=== PATIENT | female | born 1940 | race Caucasian/White ===

== ENCOUNTER 2019-02-04 23:22 | Inpatient (IN) | payer MEDICARE ==
[~2019-02-04] VITALS: Ht 157.5 cm; Wt 73.0 kg
[~2019-02-04 23:22] MED LIST: ALBU18HF2; ALBU8.5H8; AMLO10TA7 PO; ATOR20TA PO; AZIL40TA PO; CLON0.2T PO; CLOP75TA15; ESCI5TAB PO; GLIP5TAB13; INSU100V7 SQ; LUBI24CA5 PO; METF500T7; METO50TA16 PO; OMEP10SU2 PO; PHEN-705 PO; SYRI1DIS; [UNRECOGNIZED DRUG - CODE] MC
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
[2019-02-05 00:37] LABS: APPEARANCE,URINE Clear (CLEAR); BILIRUBIN,URINE Negative (NEGATIVE); BLOOD, URINE Negative Ery/uL (NEGATIVE); COLOR,URINE Orange (YELLOW); KETONES,URINE Negative (NEGATIVE); LEUKOCYTE ESTERASE ,URINE Negative (NEGATIVE); NITRITE, URINE Positive (NEGATIVE); PROTEIN,URINE 30 mg/dl (NEGATIVE); UGLUCOSE >=1000 mg/dL (NEGATIVE); UROBILINOGEN,URINE 0.2 EU/dL (0.2)
[2019-02-05 00:43] LABS: BASOPHILS # (AUTO) 0.1 /CMM (0.0-0.2); BASOPHILS % (AUTO) 0.9 % (0.0-2.0); HEMATOCRIT 39 % (33-45); HEMOGLOBIN 12.8 g/dL (11.5-14.8); LYMPHOCYTES # (AUTO) 2.5 /CMM (0.8-4.8); LYMPHOCYTES % (AUTO) 23.6 % (20.0-44.0); MEAN CORPUSCULAR HGB CONC 33 g/dl (31.0-36.0); MEAN CORPUSCULAR VOLUME 92 fL (82-100); MONOCYTES # (AUTO) 0.6 /CMM (0.1-1.30); MONOCYTES % (AUTO) 5.9 % (2.0-12.0); NEUTROPHILS # (AUTO) 6.8 /CMM (1.8-8.9); NEUTROPHILS % (AUTO) 64.6 % (43.0-81.0); PLATELET COUNT (AUTO) 223 /CMM (150-450); RED BLOOD CELL COUNT(AUTO) 4.24 MIL/uL (4.0-5.2); WHITE BLOOD COUNT (AUTO) 10.5 K/uL (4.3-11.0)
[2019-02-05 00:51] LABS: ACETAMINOPHEN 3 ug/ml (10-30); ALANINE AMINOTRANSFERASE 22 U/L (12-78); ALBUMIN 3.6 g/dL (3.4-5.0); ALKALINE PHOSPHATASE 105 U/L (46-116); ASPARTATE AMINOTRANSFERASE 16 U/L (15-37); BILIRUBIN,DIRECT 0.1 mg/dL (0.0-0.2); BILIRUBIN,TOTAL 0.5 mg/dL (0.2-1.0); CALCIUM, SERUM 9.1 mg/dL (8.5-10.1); CARBON DIOXIDE 28 mmol/L (21-32); CHLORIDE 99 mmol/L (98-107); POTASSIUM 4.3 mmol/L (3.5-5.1); SODIUM SERUM 135 mmol/L (136-145); TOTAL PROTEIN, SERUM 6.6 g/dL (6.4-8.2); UREA NITROGEN, BLOOD 31 mg/dL (7-18)
[2019-02-05 00:52] LABS: ALCOHOL, BLOOD < 3 mg/dL (0-0); SALICYLATE 0.6 mg/dL (2.8-20.0)
[2019-02-05 00:53] LABS: GLUCOSE 378 mg/dL (74-106)
--- NOTE | 2019-02-05 01:00 | NUR ---
PT RESTING IN BED, NAD NOTED.
[2019-02-05] MEDS ORDERED: INSULIN REGULAR, HUMAN 100 UNIT/ML 10 ML VIAL ONE (01:11)
[2019-02-05 01:20] LABS: BACTERIA,URINE Few /HPF (None Seen); RBC,URINE 0-2 /HPF (0-2); SQUAMOUS EPITHELIAL CELL,UR Few /HPF (None Seen)
[2019-02-05] MEDS ORDERED: INSULIN REGULAR, HUMAN 100 UNIT/ML 10 ML VIAL IV ONE (01:30)
[2019-02-05 01:45] LABS: THYROID STIMULATING HORMONE 3.198 uIU/mL (0.358-3.74)
[2019-02-05 02:31] LABS: EOSINOPHILS % (MANUAL) 5 % (0-4); LYMPHOCYTES % (MANUAL) 14 % (16-48); MONOCYTES % (MANUAL) 4 % (0-11.0); NEUTROPHILS % (MANUAL) 77 (42-76)
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
[2019-02-05 02:56] VITALS: BP 117/60
[2019-02-05] MEDS ORDERED: ZOLPIDEM TARTRATE 5 MG TABLET PO PRN (03:00)
[2019-02-05] MEDS ORDERED: LORAZEPAM 0.5 MG TABLET PO PRN (03:00)
[2019-02-05] MEDS ORDERED: MAGNESIUM HYDROXIDE 30 ML UDC PO PRN (03:00)
[2019-02-05 04:30] VITALS: BP 164/86
--- NOTE | 2019-02-05 06:56 | NUR ---
PAGED DR. MAE TO RECONCILE THE MEDS. AWAITING FOR CALLBACK. WILL ENDORSE TO NEXT SHIFT NURSE FOR FOLLOW UP.
[2019-02-05 08:00] VITALS: BP 125/65
[2019-02-05] MEDS ORDERED: HYDR25TA4 PO (08:56)
[2019-02-05] MEDS ORDERED: DIVA-78 PO (08:56)
[2019-02-05] MEDS ORDERED: FENO145T35 PO (08:56)
[2019-02-05] MEDS ORDERED: LAMO25TA10 PO (08:56)
[2019-02-05] MEDS ORDERED: LABE100T5 PO (08:56)
[2019-02-05] MEDS ORDERED: INSU100V7 SQ (08:56)
[2019-02-05] MEDS ORDERED: QUET100T PO (08:56)
[2019-02-05] MEDS ORDERED: CRAN250T2 PO (08:56)
[2019-02-05] MEDS ORDERED: CLOP75TA15 PO (08:56)
[2019-02-05] MEDS ORDERED: LOSA100T31 PO (08:56)
[2019-02-05] MEDS ORDERED: DEXTROSE 50%-WATER 50 ML DISP.SYRIN IV PRN (09:30)
[2019-02-05] MEDS: ATORVASTATIN 40 MG TABLET PO SCH (09:44)
[2019-02-05] MEDS: LOSARTAN POTASSIUM 50 MG TABLET PO SCH (10:49)
[2019-02-05] MEDS: INSULIN REGULAR, HUMAN 100 UNIT/ML 3 ML VIAL SQ PRN ×3 (12:38→21:38)
[2019-02-05] MEDS: BLOOD SUGAR DIAGNOSTIC 1 EACH STRIP IN SCH ×3 (12:43→21:15)
[2019-02-05 16:00] VITALS: BP 161/67
[2019-02-05] MEDS: ACETAMINOPHEN 325 MG TABLET PO PRN (17:35)
[2019-02-05] MEDS: LABETALOL HCL (100MG) 100 MG TABLET PO SCH (18:44)
[2019-02-05] MEDS: AMLODIPINE BESYLATE 10 MG TABLET PO SCH (18:54)
[2019-02-05] MEDS: CLONIDINE HCL 0.1 MG TABLET PO PRN (20:14)
[2019-02-05 20:22] VITALS: BP 179/90
[2019-02-05] MEDS: DIVALPROEX SODIUM 250 MG TABLET.DR PO SCH (21:10)
[2019-02-05] MEDS: QUETIAPINE FUMARATE 100 MG TABLET PO SCH (21:10)
[2019-02-05 21:30] VITALS: BP 140/67
[2019-02-05] MEDS: INSULIN GLARGINE, 100 UNIT/ML CARTRIDGE SQ SCH (21:36)
[2019-02-06 08:00] VITALS: BP 168/70
[2019-02-06] MEDS: INSULIN REGULAR, HUMAN 100 UNIT/ML 3 ML VIAL SQ PRN ×4 (08:20→21:20)
[2019-02-06] MEDS: BLOOD SUGAR DIAGNOSTIC 1 EACH STRIP IN SCH ×4 (08:21→21:12)
[2019-02-06] MEDS: FENOFIBRATE NANOCRYS (145 MG) 145 MG TABLET PO SCH (08:50)
[2019-02-06] MEDS: ATORVASTATIN 40 MG TABLET PO SCH (08:50)
[2019-02-06] MEDS: ESCITALOPRAM OXALATE (10 MG) 10 MG TABLET PO SCH (08:50)
[2019-02-06] MEDS: HYDROCHLOROTHIAZIDE 25 MG TABLET PO SCH (08:51)
[2019-02-06] MEDS: CLOPIDOGREL BISULFATE 75 MG TABLET PO SCH (08:51)
[2019-02-06] MEDS: AMLODIPINE BESYLATE 10 MG TABLET PO SCH (08:51)
[2019-02-06] MEDS: LOSARTAN POTASSIUM 50 MG TABLET PO SCH (08:52)
[2019-02-06] MEDS: LABETALOL HCL (100MG) 100 MG TABLET PO SCH ×2 (08:53→21:10)
[2019-02-06] MEDS: DIVALPROEX SODIUM 250 MG TABLET.DR PO SCH ×2 (08:58→21:10)
[2019-02-06] MEDS ORDERED: AMLODIPINE BESYLATE 10 MG TABLET PO SCH (09:00)
[2019-02-06] MEDS ORDERED: METOPROLOL TARTRATE 50 MG TABLET PO SCH (09:00)
[2019-02-06] MEDS ORDERED: CRANBERRY FRUIT 250 MG PO SCH (09:00)
[2019-02-06] MEDS ORDERED: LABETALOL HCL (100MG) 100 MG TABLET PO SCH (11:00)
[2019-02-06 11:47] LABS: CHOLESTEROL 188 mg/dL (<200); HDL CHOLESTEROL 49 mg/dL (40-60); LDL 109 mg/dL (0-99); TRIGLYCERIDES 246 mg/dL (30-150)
[2019-02-06 11:48] LABS: ALANINE AMINOTRANSFERASE 21 U/L (12-78); ALBUMIN 3.4 g/dL (3.4-5.0); ALKALINE PHOSPHATASE 67 U/L (46-116); ASPARTATE AMINOTRANSFERASE 9 U/L (15-37); BILIRUBIN,TOTAL 0.4 mg/dL (0.2-1.0); CARBON DIOXIDE 27 mmol/L (21-32); CHLORIDE 102 mmol/L (98-107); CREATININE 0.8 mg/dL (0.6-1.3); GLUCOSE 279 mg/dL (74-106); SODIUM SERUM 139 mmol/L (136-145); TOTAL PROTEIN, SERUM 6.3 g/dL (6.4-8.2); UREA NITROGEN, BLOOD 21 mg/dL (7-18)
--- NOTE | 2019-02-06 11:51 | NUR ---
SW contacted pts Mustapha [phone] and discussed treatment planning, discharge planning, and collateral information. Per he stated that pt needs SNF placement as he is unable to manage pts psychotic symptoms at home. SW informed him that she would be referring pt to local SNF's, agreed.
[2019-02-06 12:02] LABS: BASOPHILS % (AUTO) 0.4 % (0.0-2.0); EOSINOPHILS % (AUTO) 4.2 % (0.0-6.0); HEMATOCRIT 37 % (33-45); HEMOGLOBIN 12.2 g/dL (11.5-14.8); LYMPHOCYTES # (AUTO) 1.5 /CMM (0.8-4.8); MEAN CORPUSCULAR HGB CONC 33 g/dl (31.0-36.0); MEAN CORPUSCULAR VOLUME 90 fL (82-100); MONOCYTES # (AUTO) 0.4 /CMM (0.1-1.30); MONOCYTES % (AUTO) 5.3 % (2.0-12.0); NEUTROPHILS # (AUTO) 5.1 /CMM (1.8-8.9); NEUTROPHILS % (AUTO) 70.1 % (43.0-81.0); PLATELET COUNT (AUTO) 225 /CMM (150-450); RED BLOOD CELL COUNT(AUTO) 4.07 MIL/uL (4.0-5.2); WHITE BLOOD COUNT (AUTO) 7.3 K/uL (4.3-11.0)
[2019-02-06] MEDS: ACETAMINOPHEN 325 MG TABLET PO PRN ×2 (13:28→19:45)
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
[2019-02-06 16:00] VITALS: BP 152/67
[2019-02-06] MEDS: CLONIDINE HCL 0.1 MG TABLET PO PRN (19:44)
[2019-02-06 20:17] VITALS: BP 210/92
[2019-02-06 21:06] VITALS: BP 158/71
[2019-02-06] MEDS: QUETIAPINE FUMARATE 100 MG TABLET PO SCH (21:11)
[2019-02-06] MEDS: INSULIN GLARGINE, 100 UNIT/ML CARTRIDGE SQ SCH (21:19)
[2019-02-07] MEDS: INSULIN REGULAR, HUMAN 100 UNIT/ML 3 ML VIAL SQ PRN ×4 (07:31→21:31)
[2019-02-07] MEDS: BLOOD SUGAR DIAGNOSTIC 1 EACH STRIP IN SCH ×4 (07:31→21:30)
[2019-02-07 08:00] VITALS: BP 160/82
[2019-02-07] MEDS: ATORVASTATIN 40 MG TABLET PO SCH (08:09)
[2019-02-07] MEDS: FENOFIBRATE NANOCRYS (145 MG) 145 MG TABLET PO SCH (08:09)
[2019-02-07] MEDS: CLOPIDOGREL BISULFATE 75 MG TABLET PO SCH (08:09)
[2019-02-07] MEDS: HYDROCHLOROTHIAZIDE 25 MG TABLET PO SCH (08:09)
[2019-02-07] MEDS: AMLODIPINE BESYLATE 10 MG TABLET PO SCH (08:09)
[2019-02-07] MEDS: ESCITALOPRAM OXALATE (10 MG) 10 MG TABLET PO SCH (08:09)
[2019-02-07] MEDS: LOSARTAN POTASSIUM 50 MG TABLET PO SCH (08:09)
[2019-02-07] MEDS: DIVALPROEX SODIUM 250 MG TABLET.DR PO SCH ×2 (08:09→20:17)
[2019-02-07] MEDS: LABETALOL HCL (100MG) 100 MG TABLET PO SCH ×2 (08:10→20:18)
[2019-02-07] MEDS: MAG HYDROX/AL HYDROX/SIMETH 30 ML UDC PO PRN (09:42)
[2019-02-07] MEDS: ACETAMINOPHEN 325 MG TABLET PO PRN ×2 (11:21→18:38)
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
[2019-02-07 16:00] VITALS: BP 152/90
[2019-02-07 20:37] VITALS: BP 160/64
[2019-02-07] MEDS: INSULIN GLARGINE, 100 UNIT/ML CARTRIDGE SQ SCH (21:31)
[2019-02-07] MEDS: QUETIAPINE FUMARATE 100 MG TABLET PO SCH (21:32)
[2019-02-08 08:00] VITALS: BP 179/74
[2019-02-08] MEDS ORDERED: HYDROCODONE/APAP 5/325MG 1 EACH TABLET PO PRN (08:30)
[2019-02-08] MEDS: BLOOD SUGAR DIAGNOSTIC 1 EACH STRIP IN SCH ×4 (09:02→21:16)
[2019-02-08] MEDS: LOSARTAN POTASSIUM 50 MG TABLET PO SCH (09:22)
[2019-02-08] MEDS: METFORMIN 500 MG TABLET PO SCH ×2 (09:22→18:17)
[2019-02-08] MEDS: DIVALPROEX SODIUM 250 MG TABLET.DR PO SCH ×2 (09:23→20:41)
[2019-02-08] MEDS: FENOFIBRATE NANOCRYS (145 MG) 145 MG TABLET PO SCH (09:23)
[2019-02-08] MEDS: ESCITALOPRAM OXALATE (10 MG) 10 MG TABLET PO SCH (09:23)
[2019-02-08] MEDS: HYDROCHLOROTHIAZIDE 25 MG TABLET PO SCH (09:23)
[2019-02-08] MEDS: LABETALOL HCL (100MG) 100 MG TABLET PO SCH ×2 (09:24→20:41)
[2019-02-08] MEDS: AMLODIPINE BESYLATE 10 MG TABLET PO SCH (09:24)
[2019-02-08] MEDS: ATORVASTATIN 40 MG TABLET PO SCH (09:24)
[2019-02-08] MEDS: CLOPIDOGREL BISULFATE 75 MG TABLET PO SCH (09:28)
[2019-02-08] MEDS: INSULIN REGULAR, HUMAN 100 UNIT/ML 3 ML VIAL SQ PRN ×4 (09:36→21:27)
[2019-02-08 11:10] VITALS: BP 195/95
[2019-02-08] MEDS: CLONIDINE HCL 0.1 MG TABLET PO PRN (11:11)
--- NOTE | 2019-02-08 11:11 | NUR ---
given norco for headache and clonidine for elevated bp..
--- NOTE | 2019-02-08 11:24 | NUR ---
PC Hearing Notification: VERONIKA contacted pts Mustapha [phone] and left him a voicemail stating that the pt will have a PC Hearing today and that will entail whether or not the pt will be on a hold.
--- NOTE | 2019-02-08 13:51 | NUR ---
covered for 266 blood sugar,366 blood sugar was taken per pt. request after pt. ate.
[2019-02-08 16:00] VITALS: BP 130/50
--- NOTE | 2019-02-08 16:02 | NUR ---
Superintendent Maintenance [employer]ports Group Session-- Goal: Patient will attend group being held today from 11am -11:45 in the activities room and participate and/or actively listen to peers and be respectful. Intervention: SW invited patient to attend group session with peers regarding: the goal or positive outcome/s each pt. would like to see happen as a result of their stay in [facility]. SW respected patient�s self-determination and will continue to invite patient to future group sessions. Response: Patient declined to participate in today�s group bilingual social worker session. Plan: Patient will be invited to attend next bilingual social worker group held.
[2019-02-08 19:48] VITALS: BP 142/67
[2019-02-08] MEDS: ACETAMINOPHEN 325 MG TABLET PO PRN (20:40)
[2019-02-08] MEDS: QUETIAPINE FUMARATE 100 MG TABLET PO SCH (21:16)
[2019-02-08] MEDS: INSULIN GLARGINE, 100 UNIT/ML CARTRIDGE SQ SCH (21:26)
[2019-02-09] MEDS: BLOOD SUGAR DIAGNOSTIC 1 EACH STRIP IN SCH ×4 (07:15→21:32)
[2019-02-09 08:00] VITALS: BP 161/71
[2019-02-09] MEDS: ESCITALOPRAM OXALATE (10 MG) 10 MG TABLET PO SCH (08:08)
[2019-02-09] MEDS: LOSARTAN POTASSIUM 50 MG TABLET PO SCH (08:08)
[2019-02-09] MEDS: METFORMIN 500 MG TABLET PO SCH ×2 (08:08→16:24)
[2019-02-09] MEDS: FENOFIBRATE NANOCRYS (145 MG) 145 MG TABLET PO SCH (08:08)
[2019-02-09] MEDS: DIVALPROEX SODIUM 250 MG TABLET.DR PO SCH ×2 (08:08→20:10)
[2019-02-09] MEDS: HYDROCHLOROTHIAZIDE 25 MG TABLET PO SCH (08:08)
[2019-02-09] MEDS: ATORVASTATIN 40 MG TABLET PO SCH (08:08)
[2019-02-09] MEDS: AMLODIPINE BESYLATE 10 MG TABLET PO SCH (08:09)
[2019-02-09] MEDS: LABETALOL HCL (100MG) 100 MG TABLET PO SCH ×2 (08:09→20:11)
[2019-02-09] MEDS: CLOPIDOGREL BISULFATE 75 MG TABLET PO SCH (08:09)
[2019-02-09] MEDS: INSULIN REGULAR, HUMAN 100 UNIT/ML 3 ML VIAL SQ PRN ×4 (08:10→21:53)
[2019-02-09] MEDS: CLONIDINE HCL 0.1 MG TABLET PO PRN (09:13)
--- NOTE | 2019-02-09 09:17 | NUR ---
VERONIKA faxed SNF referral to Manuela, charter coordinator at [facility] Address: [address] [place] [address] for review.
--- NOTE | 2019-02-09 12:20 | NUR ---
SW received a call from Payton, curriculum development coordinator at [facility] Address: [address] [place] [address] stating pt has been accepted to the facility.
--- NOTE | 2019-02-09 12:21 | NUR ---
VERONIKA contacted pts Mustapha [phone] and informed him pt is discharging tomorrow 02/10/19 to [facility], agreed with discharge plan.
[2019-02-09] MEDS: ACETAMINOPHEN 325 MG TABLET PO PRN (14:54)
[2019-02-09 16:37] VITALS: BP 148/75
--- NOTE | 2019-02-09 19:36 | NUR ---
SHE IS CLAIMING TO HAVE LOOSE BOWEL, INSTRUCTED TO LET RN CHECK HER STOOLS, OFFERED APPLE JUICE BUT SHE REFUSED.
[2019-02-09 20:00] VITALS: BP 148/65
[2019-02-09] MEDS: MAG HYDROX/AL HYDROX/SIMETH 30 ML UDC PO PRN (20:01)
[2019-02-09] MEDS: QUETIAPINE FUMARATE 100 MG TABLET PO SCH (21:10)
[2019-02-09] MEDS: INSULIN GLARGINE, 100 UNIT/ML CARTRIDGE SQ SCH (21:56)
[2019-02-10 08:00] VITALS: BP 157/68
[2019-02-10] MEDS: CLOPIDOGREL BISULFATE 75 MG TABLET PO SCH (08:20)
[2019-02-10] MEDS: ATORVASTATIN 40 MG TABLET PO SCH (08:20)
[2019-02-10] MEDS: BLOOD SUGAR DIAGNOSTIC 1 EACH STRIP IN SCH (08:20)
[2019-02-10] MEDS: METFORMIN 500 MG TABLET PO SCH (08:20)
[2019-02-10] MEDS: DIVALPROEX SODIUM 250 MG TABLET.DR PO SCH (08:21)
[2019-02-10] MEDS: LOSARTAN POTASSIUM 50 MG TABLET PO SCH (08:21)
[2019-02-10] MEDS: LABETALOL HCL (100MG) 100 MG TABLET PO SCH (08:21)
[2019-02-10] MEDS: HYDROCHLOROTHIAZIDE 25 MG TABLET PO SCH (08:22)
[2019-02-10] MEDS: ESCITALOPRAM OXALATE (10 MG) 10 MG TABLET PO SCH (08:22)
[2019-02-10] MEDS: FENOFIBRATE NANOCRYS (145 MG) 145 MG TABLET PO SCH (08:22)
[2019-02-10] MEDS: AMLODIPINE BESYLATE 10 MG TABLET PO SCH (08:22)
[2019-02-10] MEDS: INSULIN REGULAR, HUMAN 100 UNIT/ML 3 ML VIAL SQ PRN (08:24)
--- NOTE | 2019-02-10 09:03 | NUR ---
WOUND CARE CONSULT: PT PRESENTS WITH SKIN GROWTHS ON BILATERAL SHOULDERS, PRESENT ON ADMISSION. PT STATES WILL FOLLOW UP WITH PMD/POWER EQUIPMENT TECHNOLOGY INSTRUCTOR AFTER DISCHARGE TODAY.
--- NOTE | 2019-02-10 09:21 | NUR ---
DR. GONZALES GAVE AN ORDER TO D/C HOLD AND D/C TO [facility] AND TO FOLLOW UP WITH PSYCH AND MEDICAL DOCTORS. PT. WITHOUT DISTRESS, DENIES SUICIDAL AND HOMICIDAL. DR. HESTER MADE AWARE OF THE DISCHARGE AND RECONCILED MEDS. Addendum: 02/10/19 at 1105 by PAOLA PIPER RN PT. D/C TO MED-SURG INSTEAD TO [facility].
--- NOTE | 2019-02-10 10:36 | NUR ---
GPS RN NOTE INFORMED PRIMARY HOSPITALIST OF BRIGHT RED BLOOD PER RECTUM X1 JUST NOW. PER DR HESTER, HOLD D/C PENDING GI CONSULT AND RECEIVED ORDERS FOR STAT CBC. VERIFIED VIA READ BACK AND CARRIED OUT. INFORMED CHARGE NURSE PAOLA, PER PAOLA SINCE PT WAS FOR D/C TODAY AND CLEARED BY PSYCH PT WILL BE TRANSFERRED TO MEDICAL FLOOR, AWAITING ROOM ASSIGNMENT.
--- NOTE | 2019-02-10 10:56 | NUR ---
DISCHARGE NOTE: Pt will be discharged to the medical floor on this present day. Once pt is stable she will be discharged to [facility].
--- NOTE | 2019-02-10 10:56 | NUR ---
DR. GONZALES MADE AWARE THAT PT. IS WITH AN ORDER TO TRANSFER TO MED-SURG FOR BLOODY STOOLS AND HE ORDERED TO D/C HOLD AND D/C TO MED- SURG. MAINTENANCE PLANNING CLERK MADE AWARE AND DEANDRE WAS NOTIFIED. Addendum: 02/10/19 at 1533 by PAOLA PIPER RN PT. DENIES SUICIDAL AND HOMICIDAL.
[2019-02-10 11:00] VITALS: BP 154/76
--- NOTE | 2019-02-10 11:04 | NUR ---
VERONIKA contacted Payton, conference center coordinator at [facility] Address: [address] [place] [address] to inform her pt will not be discharged on this present day due to being discharged to the medical floor.
[2019-02-10 11:17] LABS: BASOPHILS # (AUTO) 0.1 /CMM (0.0-0.2); BASOPHILS % (AUTO) 1.3 % (0.0-2.0); HEMATOCRIT 40 % (33-45); HEMOGLOBIN 13.3 g/dL (11.5-14.8); LYMPHOCYTES # (AUTO) 1.8 /CMM (0.8-4.8); LYMPHOCYTES % (AUTO) 22.2 % (20.0-44.0); MEAN CORPUSCULAR HGB CONC 33 g/dl (31.0-36.0); MEAN CORPUSCULAR VOLUME 90 fL (82-100); MONOCYTES # (AUTO) 0.4 /CMM (0.1-1.30); MONOCYTES % (AUTO) 4.8 % (2.0-12.0); NEUTROPHILS # (AUTO) 5.4 /CMM (1.8-8.9); NEUTROPHILS % (AUTO) 67.7 % (43.0-81.0); PLATELET COUNT (AUTO) 262 /CMM (150-450); RED BLOOD CELL COUNT(AUTO) 4.45 MIL/uL (4.0-5.2); WHITE BLOOD COUNT (AUTO) 7.9 K/uL (4.3-11.0)
--- NOTE | 2019-02-10 13:05 | NUR ---
GPS RN NOTE PT DISCHARGED TO [facility]. REPORT GIVEN TO KIMBERLEE SANCHEZ
[2019-02-11] MEDS ORDERED: HYDR28.32 TP (08:42)
[2019-02-11] MEDS ORDERED: NITR100C6 PO (08:46)
== END 2019-02-10 13:00 | disposition short-term general hospital (02) | DRG 885 ==
LOC: ER 23:25 → GPS 02-05 02:24
PROVIDERS: ADMIT Psychiatry & Neurology Psychiatry; ATTEND Family Medicine
DX: F39 Unspecified mood [affective] disorder (principal); E11.65 Type 2 diabetes mellitus with hyperglycemia; K92.1 Melena; E78.5 Hyperlipidemia, unspecified; F31.9 Bipolar disorder, unspecified; F03.90 Unspecified dementia, unspecified severity, without behavioral disturbance, psychotic disturbance, mood disturbance, and anxiety; Z86.73 Personal history of transient ischemic attack (TIA), and cerebral infarction without residual deficits; I10 Essential (primary) hypertension
CPT/HCPCS: 36415; 80048-TC; 80053-TC; 80061-TC; 80076-TC; 80305; 81000-TC; 82010-TC; 82962-TC; 84443-TC; 85025-TC; 87081-TC; G0480; J1815

== ENCOUNTER 2019-02-10 12:09 | Inpatient (IN) | payer MEDICARE ==
[~2019-02-10] VITALS: Ht 160 cm; Wt 69.4 kg
[~2019-02-10 12:09] MED LIST changes: +CLOP75TA15 PO; +CRAN250T2 PO; +DIVA-78 PO; +FENO145T35 PO; +HYDR25TA4 PO; +LABE100T5 PO; +LAMO25TA10 PO; +LOSA100T31 PO; +QUET100T PO
[2019-02-10] MEDS ORDERED: CLONIDINE HCL 0.2 MG TABLET PO PRN (12:30)
[2019-02-10] MEDS ORDERED: DEXTROSE 50%-WATER 50 ML DISP.SYRIN IV PRN (12:30)
[2019-02-10] MEDS ORDERED: IV D5/0.45 NACL 1,000 ML IV PRN (12:31)
[2019-02-10] MEDS ORDERED: ACETAMINOPHEN 325 MG TABLET PO PRN (13:00)
[2019-02-10] MEDS ORDERED: ONDANSETRON HCL/PF 4 MG/2 ML VIAL IVP PRN (13:00)
[2019-02-10] MEDS ORDERED: ZOLPIDEM TARTRATE 5 MG TABLET PO PRN (13:00)
[2019-02-10] MEDS ORDERED: Z GUARD REMEDY 2 OZ OINT TP PRN (13:00)
[2019-02-10] MEDS ORDERED: CLONIDINE HCL 0.1 MG TABLET PO PRN (13:00)
[2019-02-10] MEDS ORDERED: HYDROCODONE/APAP 5/325MG 1 EACH TABLET PO PRN (13:00)
[2019-02-10] MEDS ORDERED: MORPHINE SULFATE INJ 2 MG/ML DISP.SYRIN IV PRN (13:00)
[2019-02-10] MEDS ORDERED: MAGNESIUM HYDROXIDE 30 ML UDC PO PRN (13:00)
[2019-02-10] MEDS ORDERED: MAG HYDROX/AL HYDROX/SIMETH 30 ML UDC PO PRN (13:00)
[2019-02-10] MEDS: LOSARTAN POTASSIUM 50 MG TABLET PO SCH (13:33)
--- NOTE | 2019-02-10 14:15 | NUR ---
MS ASSISTANT CITY ATTORNEY NOTES RECEIVED PT FROM GPS UNIT. JAMES GPS/RN/ELLIOTT AT 1230. PT IS A/O X3 WITH EPISODES OF FORGETFULNESS. PT AMBULATORY WITH MILD WEAKNESS NOTED WHILE WALKING. TOLERATING RA WITH NO ACUTE RESPIRATORY DISTRESS. PT REFUSES TO HAVE PIV LINE STARTED. MULTIPLE NURSED ENCOURAGED AND EXPLAINED TO THE PT RISKS AND BENEFITS, STILL PT REFUSED TO HAVE IT; ADMITTING/JUNIOR BOOKKEEPER/DT MADE AWARE. PT DENIES ANY PAIN OR DISCOMFORT AT THE TIME OF ADMISSION. GATHERED ADMISSION INFORMATION FROM THE PT. BELONGINGS/INVENTORY LIST PLACED IN THE CHART. LEFT SHOULDER LESION NOTED, PER GPS NURSE IT WAS SEEN BY TX NURSE/LOLA AND TO LEAVE IT OPEN TO AIR. SKIN INTACT. PT ORIENTED TO STAFF AND THE UNIT. PT KEPT COMFORTABLE. PT'S BED IN LOWEST, LOCKED POSITION WITH SR X3. WILL CONTINUE PLAN OF CARE.
[2019-02-10 14:19] LABS: APPEARANCE,URINE SL CLOUDY (CLEAR); BILIRUBIN,URINE NEGATIVE (NEGATIVE); BLOOD, URINE NEGATIVE Ery/uL (NEGATIVE); COLOR,URINE YELLOW (YELLOW); KETONES,URINE NEGATIVE (NEGATIVE); LEUKOCYTE ESTERASE ,URINE 1+ (NEGATIVE); NITRITE, URINE NEGATIVE (NEGATIVE); PROTEIN,URINE NEGATIVE (NEGATIVE); UGLUCOSE 1+ mg/dL (NEGATIVE); UROBILINOGEN,URINE 0.2 EU/dL (0.2)
[2019-02-10 15:05] LABS: BACTERIA,URINE Few /HPF (None Seen); RBC,URINE 0-2 /HPF (0-2); SQUAMOUS EPITHELIAL CELL,UR Few /HPF (None Seen)
--- NOTE | 2019-02-10 15:50 | NUR ---
MS RN NOTES BANK WORKER/DT MADE AWARE REGARDING PT'S REFUSAL OF IV LINE UP TO THIS MOMENT. BANK WORKER ADVISED TO TRY AGAIN LATER OR MIDLINE IF HARD STICK. ALSO, PT REQUESTED TO HAVE SHOWER. BANK WORKER/DT OKAY PT TO SHOWER. SATISH/DEANDRE MADE AWARE.
[2019-02-10 16:00] VITALS: BP 156/73
[2019-02-10] MEDS: HYDROCORTISONE 1% CREAM 28.35 GM TUBE TP SCH (16:44)
[2019-02-10] MEDS: BLOOD SUGAR DIAGNOSTIC 1 EACH STRIP IN SCH ×2 (16:54→21:52)
[2019-02-10] MEDS: INSULIN REGULAR, HUMAN 100 UNIT/ML 3 ML VIAL SQ PRN ×2 (16:57→21:49)
--- NOTE | 2019-02-10 18:01 | NUR ---
MS RN NOTES PT JUST HAD SHOWER ASSISTED BY TUBER OPERATOR/DAVID. PT OFFERED AND EXPLAINED RISKS AND BENEFITS OF HAVING PIV LINE STARTED. WITNESSED BY ANOTHER RN/JE AND KINDERGARTEN PREP TEACHER/CUATE. PT STILL INSIST TO REFUSE. WILL ENDORSE TO INCOMING NIGHT NURSE WELL.
--- NOTE | 2019-02-10 18:33 | NUR ---
MS RN CLOSING NOTES PT IS A/O X2-3 WITH EPISODES OF FORGETFULNESS. PT AMBULATORY WITH ASSIST. TOLERATING RA WITH NO ACUTE RESPIRATORY DISTRESS. PT STILL REFUSES TO HAVE PIV LINE STARTED; ADMITTING/RAILROAD CAR CLEANING SUPERVISOR/DT MADE AWARE. PT DENIES ANY PAIN OR DISCOMFORT AT THIS TIME. PT KEPT COMFORTABLE. ALL NEEDS AND CARE ATTENDED. PT'S BED IN LOWEST, LOCKED POSITION WITH SR X3. CALL LIGHT AND FLUID KEPT WITHIN REACH. WILL ENDORSE TO INCOMING NIGHT NURSE FOR BARBARA.
--- NOTE | 2019-02-10 19:10 | NUR ---
RN MS OPENING NOTES RECEIVED PATIENT IN BED AWAKE ALERT AND ORIENTED X2-3, RESPIRATIONS EVEN AND UNLABORED WITH EQUAL RISE AND FALL OF CHEST, DENIES ANY PAIN OR DISCOMFORT AT THIS TIME, ASKED PATIENT IF ABLE TO INSERT IV NOTIFIED OF RISK AND BENEFITS PATIENT STRONGLY REFUSED. HOSPITALIST AWARE. ORIENTED TO STAFF AND CALL LIGHT AND KEPT WITHIN REACH,SAFETY PRECAUTIONS IN PLACE, LOW BED AND LOCKED, BED ALARM IN PLACE, MADE PATIENT AWARE OF STOOL SAMPLE NEEDED, VERBALIZES SHE UNDERSTANDS. ALL NEEDS ATTENDED AT THIS TIME, WILL CONTINUE TO MONITOR AND ATTEND TO NEEDS.
[2019-02-10 20:00] VITALS: BP 164/70
--- NOTE | 2019-02-10 20:51 | NUR ---
Patient was transferred from [facility] to [facility] due to bloody stool. Prior to admission, patient resides at home with her spouse [place] [address] [place] [address] . She was ambulatory and independent with adl's prior to admit. Current dc plan is SNF placement at [facility] Address: [address] [place] [address] . Patient was already accepted and bed is available when dc. Addendum: 02/10/19 at 2051 by LYDIA MOORE RN Amended: Links added.
[2019-02-10] MEDS ORDERED: INSULIN GLARGINE, 100 UNIT/ML CARTRIDGE SQ SCH (22:00)
--- NOTE | 2019-02-10 22:00 | NUR ---
RN MS NOTES ACCU-CHECK 164 INSULIN GIVEN ORDERED JUICE REQUESTED AND GIVEN
[2019-02-11] VITALS: BP 134/59
--- NOTE | 2019-02-11 06:43 | NUR ---
RN MS NOTES PATIENT REFUSED LAB DRAW AT THIS TIME , EXPLAINED BENEFIT OF MD ORDER PATIENT STILL REFUSED , LAB WILL ATTEMPT AT A LATER TIME PATIENT STATES " NO THEY ALWAYS TAKE BLOOD"
[2019-02-11] MEDS: BLOOD SUGAR DIAGNOSTIC 1 EACH STRIP IN SCH ×2 (06:47→12:01)
[2019-02-11] MEDS: INSULIN REGULAR, HUMAN 100 UNIT/ML 3 ML VIAL SQ PRN ×2 (06:47→11:35)
--- NOTE | 2019-02-11 07:05 | NUR ---
RN MS CLOSING NOTES PATIENT IN BED AWAKE ALERT AND ORIENTED X2-3, RESPIRATIONS EVEN AND UNLABORED WITH EQUAL RISE AND FALL OF CHEST, DENIES ANY PAIN OR DISCOMFORT AT THIS TIME, UNABLE TO INSERT IV NOTIFIED OF RISK AND BENEFITS PATIENT STRONGLY REFUSED. HOSPITALIST AWARE. CALL LIGHT AND KEPT WITHIN REACH,SAFETY PRECAUTIONS IN PLACE, LOW BED AND LOCKED, BED ALARM IN PLACE, MADE PATIENT AWARE OF STOOL SAMPLE NEEDED, NO BM THIS SHIT, ALL NEEDS ATTENDED AT THIS TIME, WILL CONTINUE TO MONITOR AND ATTEND TO NEEDS AND ENDORSE TO NEXT SHIFT LEFT PATIENT SAFE.
--- NOTE | 2019-02-11 07:30 | NUR ---
RN MS OPENING NOTES Patient received on room air, no sob noted, patient remains a/o x2-3. Patient would start crying randomly when talking to her. Patient remains on clear liquid diet, refuses IV placement, and refused blood draw this AM. Asked patient to give blood to the tech because it's important, patient agreed and said she will consent to blood draw later on. Patient aware that we need stool sample from her. Bed at the lowest setting, call light within reach, side rails up x2.
[2019-02-11 08:00] VITALS: BP 144/71
[2019-02-11 08:36] VITALS: BP 144/71
[2019-02-11] MEDS: LOSARTAN POTASSIUM 50 MG TABLET PO SCH (08:36)
[2019-02-11] MEDS: HYDROCORTISONE 1% CREAM 28.35 GM TUBE TP SCH (08:36)
[2019-02-11] MEDS ORDERED: HYDR28.32 TP (08:42)
--- NOTE | 2019-02-11 08:44 | NUR ---
RN NOTES Protonix not given due to patient not having IV access, pt refuses IV access at this time.
[2019-02-11] MEDS ORDERED: NITR100C6 PO (08:46)
[2019-02-11] MEDS ORDERED: HYDROCHLOROTHIAZIDE 25 MG TABLET PO SCH (09:00)
[2019-02-11] MEDS ORDERED: AMLODIPINE BESYLATE 10 MG TABLET PO SCH (09:00)
[2019-02-11] MEDS ORDERED: LABETALOL HCL (100MG) 100 MG TABLET PO SCH (09:00)
[2019-02-11] MEDS ORDERED: FENOFIBRATE NANOCRYS (145 MG) 145 MG TABLET PO SCH (09:00)
[2019-02-11] MEDS ORDERED: METOPROLOL TARTRATE 50 MG TABLET PO SCH (09:00)
[2019-02-11] MEDS ORDERED: PANTOPRAZOLE 40 MG VIAL IV SCH (09:00)
[2019-02-11 09:26] LABS: BASOPHILS % (AUTO) 0.2 % (0.0-2.0); EOSINOPHILS % (AUTO) 3.8 % (0.0-6.0); HEMATOCRIT 39 % (33-45); LYMPHOCYTES # (AUTO) 1.5 /CMM (0.8-4.8); LYMPHOCYTES % (AUTO) 20.9 % (20.0-44.0); MEAN CORPUSCULAR HGB CONC 34 g/dl (31.0-36.0); MEAN CORPUSCULAR VOLUME 90 fL (82-100); MONOCYTES # (AUTO) 0.4 /CMM (0.1-1.30); MONOCYTES % (AUTO) 5.6 % (2.0-12.0); NEUTROPHILS # (AUTO) 4.9 /CMM (1.8-8.9); NEUTROPHILS % (AUTO) 69.5 % (43.0-81.0); PLATELET COUNT (AUTO) 226 /CMM (150-450); RED BLOOD CELL COUNT(AUTO) 4.26 MIL/uL (4.0-5.2)
[2019-02-11 09:38] LABS: ALANINE AMINOTRANSFERASE 19 U/L (12-78); ALBUMIN 3.5 g/dL (3.4-5.0); ALKALINE PHOSPHATASE 54 U/L (46-116); ASPARTATE AMINOTRANSFERASE 32 U/L (15-37); BILIRUBIN,TOTAL 0.5 mg/dL (0.2-1.0); CALCIUM, SERUM 9.2 mg/dL (8.5-10.1); CARBON DIOXIDE 25 mmol/L (21-32); CHLORIDE 102 mmol/L (98-107); CREATININE 0.6 mg/dL (0.6-1.3); GLUCOSE 155 mg/dL (74-106); MAGNESIUM 1.7 mg/dL (1.8-2.4); PHOSPHORUS 3.3 mg/dL (2.5-4.9); POTASSIUM 4.6 mmol/L (3.5-5.1); SODIUM SERUM 137 mmol/L (136-145); TOTAL PROTEIN, SERUM 6.6 g/dL (6.4-8.2); UREA NITROGEN, BLOOD 14 mg/dL (7-18)
[2019-02-11] MEDS ORDERED: MAGNESIUM OXIDE 400 MG TABLET PO ONE (10:30)
--- NOTE | 2019-02-11 15:39 | NUR ---
RN MS NOTES Patient discharged at this time, picked up by ambulance. Patient has all belongings, signed and with her possession. Patient has no further questions or concerns with her discharge instructions. Patient has no IV line, patients vital signs stable, denies pain at this time. Photo taken and is now on the chart.
[2019-02-11] MEDS ORDERED: ATORVASTATIN 40 MG TABLET PO SCH (22:00)
[2019-02-12] MEDS ORDERED: PANTOPRAZOLE 40 MG/PACK PACK PO SCH (07:30)
== END 2019-02-11 15:30 | DRG 394 ==
LOC: MED 12:09
PROVIDERS: ADMIT Nurse Practitioner Acute Care; ATTEND Nurse Practitioner Acute Care
DX: K64.9 Unspecified hemorrhoids (principal); N39.0 Urinary tract infection, site not specified; I10 Essential (primary) hypertension; E78.5 Hyperlipidemia, unspecified; E11.9 Type 2 diabetes mellitus without complications; Z86.73 Personal history of transient ischemic attack (TIA), and cerebral infarction without residual deficits; F29 Unspecified psychosis not due to a substance or known physiological condition
CPT/HCPCS: 36415; 80053-TC; 81000-TC; 82962-TC; 83735-TC; 84100-TC; 85025-TC; 87081-TC; 87086-TC; C9113; G0378; J1815

== ENCOUNTER 2019-06-08 18:33 | Inpatient (IN) | payer MEDICARE, BC ==
[~2019-06-08] VITALS: Ht 160 cm; Wt 68.0 kg
[~2019-06-08 18:33] MED LIST changes: -ALBU18HF2; -ALBU8.5H8; -AZIL40TA PO; -CLOP75TA15; -DIVA-78 PO; -ESCI5TAB PO; +FENO145T21 PO; -FENO145T35 PO; -GLIP5TAB13; +HYDR28.32 TP; -LAMO25TA10 PO; -LUBI24CA5 PO; -METF500T7; +NITR100C6 PO; -OMEP10SU2 PO; -PHEN-705 PO; -QUET100T PO; -SYRI1DIS; -[UNRECOGNIZED DRUG - CODE] MC
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
--- NOTE | 2019-06-08 19:08 | NUR ---
patient refusing blood draw, becomes agitated. Dr. Guevara at bedside.
[2019-06-08 19:16] LABS: BASOPHILS # (AUTO) 0.1 /CMM (0.0-0.2); BASOPHILS % (AUTO) 1.1 % (0.0-2.0); EOSINOPHILS % (AUTO) 3.4 % (0.0-6.0); HEMATOCRIT 46 % (33-45); HEMOGLOBIN 14.7 g/dL (11.5-14.8); LYMPHOCYTES % (AUTO) 24.8 % (20.0-44.0); MEAN CORPUSCULAR HGB CONC 32 g/dl (31.0-36.0); MEAN CORPUSCULAR VOLUME 87 fL (82-100); MONOCYTES # (AUTO) 0.7 /CMM (0.1-1.30); MONOCYTES % (AUTO) 5.9 % (2.0-12.0); NEUTROPHILS # (AUTO) 7.9 /CMM (1.8-8.9); NEUTROPHILS % (AUTO) 64.8 % (43.0-81.0); PLATELET COUNT (AUTO) 261 /CMM (150-450); RED BLOOD CELL COUNT(AUTO) 5.25 MIL/uL (4.0-5.2); WHITE BLOOD COUNT (AUTO) 12.2 K/uL (4.3-11.0)
--- NOTE | 2019-06-08 19:20 | NUR ---
BLOOD DRAWN AND URINE SAMPLE OBTAINED AND SENT TO LAB.
[2019-06-08 19:22] LABS: APPEARANCE,URINE Clear (CLEAR); BILIRUBIN,URINE Negative (NEGATIVE); BLOOD, URINE Negative Ery/uL (NEGATIVE); COLOR,URINE Yellow (YELLOW); KETONES,URINE Negative (NEGATIVE); LEUKOCYTE ESTERASE ,URINE Negative (NEGATIVE); NITRITE, URINE Negative (NEGATIVE); PH,URINE 5.5 (5.0-8.0); PROTEIN,URINE Negative (NEGATIVE); UGLUCOSE 500 MG/DL mg/dL (NEGATIVE); UROBILINOGEN,URINE 0.2 EU/dL (0.2)
[2019-06-08 19:30] LABS: ALANINE AMINOTRANSFERASE 21 U/L (12-78); ALBUMIN 3.8 g/dL (3.4-5.0); ALCOHOL, BLOOD < 3 mg/dL (0-0); ALKALINE PHOSPHATASE 115 U/L (46-116); ASPARTATE AMINOTRANSFERASE 12 U/L (15-37); BILIRUBIN,DIRECT 0.1 mg/dL (0.0-0.2); BILIRUBIN,TOTAL 0.6 mg/dL (0.2-1.0); CALCIUM, SERUM 9.4 mg/dL (8.5-10.1); CARBON DIOXIDE 23 mmol/L (21-32); CHLORIDE 100 mmol/L (98-107); CREATININE 1.1 mg/dL (0.6-1.3); GLUCOSE 323 mg/dL (74-106); POTASSIUM 3.8 mmol/L (3.5-5.1); SODIUM SERUM 136 mmol/L (136-145); TOTAL PROTEIN, SERUM 7.3 g/dL (6.4-8.2); UREA NITROGEN, BLOOD 45 mg/dL (7-18)
--- NOTE | 2019-06-08 19:31 | NUR ---
ENDORSED TO RAYMOND MOHAN.
[2019-06-08 19:35] LABS: SALICYLATE 0.7 mg/dL (2.8-20.0)
[2019-06-08 19:36] LABS: ACETAMINOPHEN < 2 ug/ml (10-30)
--- NOTE | 2019-06-08 20:24 | NUR ---
RECIEVED BED 218-2
--- NOTE | 2019-06-08 20:54 | NUR ---
REPORT GIVEN TO KIMBERLEE WARNER FOR BARBARA
--- NOTE | 2019-06-08 21:00 | NUR ---
PT CRYING C/O R SHOULDER PAIN. AWARE.
[2019-06-08] MEDS ORDERED: ACETAMINOPHEN 325 MG TABLET ONE (21:02)
--- NOTE | 2019-06-08 21:08 | NUR ---
PT TRANSFERRED TO [facility]
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
[2019-06-08 21:28] VITALS: BP 196/97
[2019-06-08] MEDS ORDERED: ACETAMINOPHEN 650 MG/20.3 ML UDC NG ONE (21:30)
[2019-06-08 22:54] VITALS: BP 144/60
[2019-06-08] MEDS ORDERED: MAGNESIUM HYDROXIDE 30 ML UDC PO PRN (23:00)
[2019-06-08] MEDS ORDERED: TEMAZEPAM 7.5 MG CAPSULE PO PRN (23:00)
[2019-06-08] MEDS ORDERED: MAG HYDROX/AL HYDROX/SIMETH 30 ML UDC PO PRN (23:00)
[2019-06-08] MEDS ORDERED: LORAZEPAM 0.5 MG TABLET PO PRN (23:00)
[2019-06-08] MEDS ORDERED: BLOOD SUGAR DIAGNOSTIC 1 EACH STRIP IN ONE (23:30)
[2019-06-09] MEDS ORDERED: HYDR25TA4 PO (00:38)
[2019-06-09] MEDS ORDERED: ATOR20TA PO (00:38)
[2019-06-09] MEDS ORDERED: CLON0.1T PO (00:38)
[2019-06-09] MEDS ORDERED: OXYC1TAB8 GT (00:38)
[2019-06-09] MEDS ORDERED: CLOP75TA15 PO (00:38)
[2019-06-09] MEDS ORDERED: LOSA100T31 PO (00:38)
[2019-06-09] MEDS ORDERED: AMLO5TAB9 PO (00:38)
[2019-06-09] MEDS ORDERED: BUTA-247 PO (00:38)
[2019-06-09] MEDS ORDERED: BACI3.5O23 OP (00:38)
[2019-06-09] MEDS ORDERED: FENO145T21 PO (00:38)
[2019-06-09] MEDS ORDERED: INSU100V7 SQ (00:38)
[2019-06-09] MEDS ORDERED: LABE100T5 PO (00:38)
[2019-06-09] MEDS ORDERED: METH4TAB3 PO (00:38)
[2019-06-09] MEDS ORDERED: METO25TA6 PO (00:38)
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
[2019-06-09] MEDS: HYDROCODONE/APAP 5/325MG 1 EACH TABLET PO PRN ×2 (02:06→09:00)
[2019-06-09] MEDS ORDERED: DEXTROSE 50%-WATER 50 ML DISP.SYRIN IV PRN (05:30)
--- NOTE | 2019-06-09 06:18 | NUR ---
GPS RN NOTES: SPOKE WITH PATIENT'S DEANDRE LOWERY [phone]. PER PATIENT HAS A MOLE REMOVE AT [facility]. ALSO GAVE THE MEDICATION LIST OVER THE PHONE. WILL FOLLOW THROUGH AND ENDORSE IT TO DAY SHIFT NURSE.
[2019-06-09] MEDS ORDERED: ESCI20TA PO (06:57)
[2019-06-09] MEDS ORDERED: GABA-532 PO (06:57)
[2019-06-09] MEDS: BLOOD SUGAR DIAGNOSTIC 1 EACH STRIP IN SCH ×4 (08:03→21:44)
[2019-06-09] MEDS: CLOPIDOGREL BISULFATE 75 MG TABLET PO SCH (08:07)
[2019-06-09] MEDS ORDERED: EMPA25TA PO (08:07)
[2019-06-09] MEDS: AMLODIPINE BESYLATE 5 MG TABLET PO SCH (08:07)
[2019-06-09] MEDS: FENOFIBRATE NANOCRYS (145 MG) 145 MG TABLET PO SCH (08:07)
[2019-06-09] MEDS: LOSARTAN POTASSIUM 50 MG TABLET PO SCH (08:08)
[2019-06-09] MEDS: INSULIN REGULAR, HUMAN 100 UNIT/ML 3 ML VIAL SQ PRN ×4 (08:51→21:42)
[2019-06-09] MEDS ORDERED: ACETAMINOPHEN W/ CODEINE#3 1 EA TABLET PO PRN (09:30)
--- NOTE | 2019-06-09 09:42 | NUR ---
Substance Abuse Intervention: SW conducted a substance abuse intervention with the pt regarding barbiturates and opiate use.
[2019-06-09] MEDS ORDERED: CLONIDINE HCL 0.1 MG TABLET PO PRN (10:00)
[2019-06-09] MEDS ORDERED: BUTALB/APAP/CAFFEINE 1 EACH TABLET PO PRN (10:00)
--- NOTE | 2019-06-09 10:04 | NUR ---
CALLED DR. LUNDBERG FOR THE CONSULT.
[2019-06-09 10:42] VITALS: BP 166/99
[2019-06-09] MEDS: DULOXETINE HCL 30 MG CAPSULE.DR PO SCH (11:35)
[2019-06-09] MEDS: LOSARTAN POTASSIUM 25 MG TABLET PO SCH ×2 (11:36→16:32)
--- NOTE | 2019-06-09 12:24 | NUR ---
WOUND CARE CONSULT: PT PRESENTS WITH CLOSED SURGICAL INCISION TO RT SHOULDER WITH SOPHIA, PRESENT ON ADMISSION. NO DRAINAGE OR ERYTHEMA NOTED. RECOMMENDATIONS MADE FOR PROTECTION OF SITE. DISCUSSED WITH NURSING STAFF. PT TO FOLLOW UP WITH HER DOCTOR. WILL SEE PRN. GAUTAM IN AGREEMENT WITH PLAN OF CARE. Addendum: 06/09/19 at 1226 by LOLA MODI WNDNU Amended: Links added.
[2019-06-09] MEDS: GABAPENTIN 100 MG CAPSULE PO SCH ×2 (13:50→16:32)
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
--- NOTE | 2019-06-09 14:25 | NUR ---
Initial Discharge Plan: Pt currently resides at her home with her located at [address] [place] [address]; ([phone]). Per pt, she would like to return to her home. SW will work with the pt and the MD regarding appropriate discharge planning. SW will form a safe and proper discharge plan.
[2019-06-09] MEDS: LORAZEPAM 1 MG TABLET PO PRN (15:13)
--- NOTE | 2019-06-09 15:13 | NUR ---
PT TEARFUL, FEARFUL AND SCARED. SHE FEELS "I DON'T KNOW WHO I AM ANYMORE" "I'M NOT JOY ANYMORE" "I DON'T KNOW ANYTHING" "I DONT KNOW IF I'LL BE HERE NEXT WEEK OR IF THIS IS GOING TO BE MY LIFE FROM NOW ON". PATIENT VERY ANXIOUS. OFFERED ATIVAN PRN AND ACCEPTED. 1MG ADMINISTERED ORDERED.
[2019-06-09 16:00] VITALS: BP 139/63
[2019-06-09] MEDS: METOPROLOL TARTRATE 25 MG TABLET PO SCH (16:32)
[2019-06-09 19:57] VITALS: BP 146/74
[2019-06-09] MEDS: QUETIAPINE FUMARATE 25 MG TABLET PO SCH (21:32)
[2019-06-09] MEDS: INSULIN GLARGINE, 100 UNIT/ML CARTRIDGE SQ SCH (21:43)
[2019-06-09] MEDS ORDERED: ATORVASTATIN 10 MG TABLET PO SCH (22:00)
[2019-06-10 07:06] LABS: BASOPHILS # (AUTO) 0.1 /CMM (0.0-0.2); BASOPHILS % (AUTO) 0.8 % (0.0-2.0); EOSINOPHILS % (AUTO) 4.4 % (0.0-6.0); HEMATOCRIT 44 % (33-45); HEMOGLOBIN 14.2 g/dL (11.5-14.8); LYMPHOCYTES # (AUTO) 1.9 /CMM (0.8-4.8); LYMPHOCYTES % (AUTO) 23.6 % (20.0-44.0); MEAN CORPUSCULAR HGB CONC 32 g/dl (31.0-36.0); MEAN CORPUSCULAR VOLUME 87 fL (82-100); MONOCYTES # (AUTO) 0.5 /CMM (0.1-1.30); MONOCYTES % (AUTO) 6.2 % (2.0-12.0); NEUTROPHILS # (AUTO) 5.3 /CMM (1.8-8.9); PLATELET COUNT (AUTO) 219 /CMM (150-450); RED BLOOD CELL COUNT(AUTO) 5.05 MIL/uL (4.0-5.2); WHITE BLOOD COUNT (AUTO) 8.1 K/uL (4.3-11.0)
[2019-06-10 07:36] LABS: CALCIUM, SERUM 9.2 mg/dL (8.5-10.1); CREATININE 0.7 mg/dL (0.6-1.3)
[2019-06-10] MEDS: BLOOD SUGAR DIAGNOSTIC 1 EACH STRIP IN SCH ×4 (07:39→21:25)
[2019-06-10] MEDS: INSULIN REGULAR, HUMAN 100 UNIT/ML 3 ML VIAL SQ PRN ×4 (07:47→21:30)
[2019-06-10 08:00] VITALS: BP 167/84
[2019-06-10] MEDS: LOSARTAN POTASSIUM 25 MG TABLET PO SCH ×2 (08:11→16:25)
[2019-06-10] MEDS: LOSARTAN POTASSIUM 50 MG TABLET PO SCH (08:11)
[2019-06-10] MEDS: CLOPIDOGREL BISULFATE 75 MG TABLET PO SCH (08:11)
[2019-06-10] MEDS: FENOFIBRATE NANOCRYS (145 MG) 145 MG TABLET PO SCH (08:12)
[2019-06-10] MEDS: AMLODIPINE BESYLATE 5 MG TABLET PO SCH (08:12)
[2019-06-10] MEDS: GABAPENTIN 100 MG CAPSULE PO SCH ×3 (08:12→16:24)
[2019-06-10] MEDS: METOPROLOL TARTRATE 25 MG TABLET PO SCH ×2 (08:12→16:25)
[2019-06-10] MEDS: DULOXETINE HCL 30 MG CAPSULE.DR PO SCH (08:12)
[2019-06-10] MEDS: HYDROCHLOROTHIAZIDE 25 MG TABLET PO SCH (08:16)
[2019-06-10] MEDS ORDERED: CLOPIDOGREL BISULFATE 75 MG TABLET PO SCH (09:00)
[2019-06-10 09:15] VITALS: BP 166/85
[2019-06-10] MEDS: oxyCODONE/APAP (5/325 MG) 1 UDTAB TABLET GT PRN ×2 (10:39→18:19)
[2019-06-10 10:40] VITALS: BP 186/90
--- NOTE | 2019-06-10 10:40 | NUR ---
RN NOTE: PATIENT C/O PAIN TO RIGHT SHOULDER 03/28. ADMINISTERED PRN PERCOCET ORDERED.
[2019-06-10] MEDS: CLONIDINE HCL 0.1 MG TABLET PO PRN (11:36)
--- NOTE | 2019-06-10 11:41 | NUR ---
RN NOTE: PATIENT NOTED WITH ELEVATED BP 186/90 x3. ADMINISTERED PRN CLONIDINE. WILL CONTINUE TO MONITOR.
[2019-06-10 12:30] VITALS: BP 135/62
[2019-06-10 16:00] VITALS: BP 147/73
--- NOTE | 2019-06-10 18:19 | NUR ---
RN NOTE: PATIENT C/O 9/10 PAIN TO RIGHT SHOULDER. ADMINISTERED PRN PERCOCET.
[2019-06-10 20:28] VITALS: BP 149/67
[2019-06-10] MEDS: ATORVASTATIN 40 MG TABLET PO SCH (21:24)
[2019-06-10] MEDS: QUETIAPINE FUMARATE 25 MG TABLET PO SCH (21:24)
[2019-06-10] MEDS: INSULIN GLARGINE, 100 UNIT/ML CARTRIDGE SQ SCH (21:29)
--- NOTE | 2019-06-10 21:30 | NUR ---
RN NOTES BSL- 285MG/DL. 6 UNITS OF NSULIN GIVEN PER SLIDING SCALE. SNACKS PROVIDED
[2019-06-11] MEDS: oxyCODONE/APAP (5/325 MG) 1 UDTAB TABLET GT PRN ×2 (06:14→12:52)
--- NOTE | 2019-06-11 06:15 | NUR ---
RN NOTEs PATIENT C/O BILATERAL LEG PAIN, 03/28. PERCOCET5/325PO GIVEN ORDERED. WILL CONTINUE TO MONITOR
[2019-06-11] MEDS: BLOOD SUGAR DIAGNOSTIC 1 EACH STRIP IN SCH ×4 (07:31→21:27)
[2019-06-11] MEDS: INSULIN REGULAR, HUMAN 100 UNIT/ML 3 ML VIAL SQ PRN ×3 (07:32→17:23)
[2019-06-11 08:00] VITALS: BP 162/99
[2019-06-11] MEDS: FENOFIBRATE NANOCRYS (145 MG) 145 MG TABLET PO SCH (08:17)
[2019-06-11] MEDS: LOSARTAN POTASSIUM 25 MG TABLET PO SCH ×2 (08:17→16:02)
[2019-06-11] MEDS: CLOPIDOGREL BISULFATE 75 MG TABLET PO SCH (08:18)
[2019-06-11] MEDS: GABAPENTIN 100 MG CAPSULE PO SCH ×3 (08:18→16:02)
[2019-06-11] MEDS: DULOXETINE HCL 30 MG CAPSULE.DR PO SCH (08:18)
[2019-06-11] MEDS: AMLODIPINE BESYLATE 5 MG TABLET PO SCH (08:18)
[2019-06-11] MEDS: HYDROCHLOROTHIAZIDE 25 MG TABLET PO SCH (08:19)
[2019-06-11] MEDS: METOPROLOL TARTRATE 25 MG TABLET PO SCH ×2 (08:19→16:03)
[2019-06-11] MEDS: LOSARTAN POTASSIUM 50 MG TABLET PO SCH (08:20)
[2019-06-11 09:30] VITALS: BP 138/74
[2019-06-11] MEDS: LORAZEPAM 1 MG TABLET PO PRN (09:45)
--- NOTE | 2019-06-11 09:47 | NUR ---
RN NOTE: PATIENT WITH EPISODES OF CRYING, STATES "WHY AM I HERE?" REDIRECTED AND REORIENTED PATIENT. ADMINISTERED PRN ATIVAN.
--- NOTE | 2019-06-11 10:33 | NUR ---
RN NOTE: ALANA CAR JOCKEY IN TO SEE PATIENT, INFORMED OF RASH TO MID BACK. PATIENT DENIES ANY PAIN JUST MILD ITCHINESS. PER ALANA, ORDER WOUND CONSULT TO MID BACK.
--- NOTE | 2019-06-11 12:56 | NUR ---
RN NOTE: PATIENT C/O 8/10 PAIN TO RIGHT SHOULDER, ADMINISTERED PRN PERCOCET.
[2019-06-11 16:00] VITALS: BP 163/84
[2019-06-11 17:00] VITALS: BP 136/77
[2019-06-11] MEDS ORDERED: CLONIDINE HCL 0.1 MG TABLET ONE (19:29)
[2019-06-11] MEDS: CLONIDINE HCL 0.1 MG TABLET PO PRN (19:33)
[2019-06-11 20:16] VITALS: BP 206/105
[2019-06-11] MEDS: QUETIAPINE FUMARATE 25 MG TABLET PO SCH (21:28)
[2019-06-11] MEDS: ATORVASTATIN 40 MG TABLET PO SCH (21:28)
[2019-06-11] MEDS: INSULIN GLARGINE, 100 UNIT/ML CARTRIDGE SQ SCH (21:33)
[2019-06-12] MEDS: CLONIDINE HCL 0.1 MG TABLET PO PRN (07:51)
[2019-06-12] MEDS: BLOOD SUGAR DIAGNOSTIC 1 EACH STRIP IN SCH ×4 (07:51→22:08)
[2019-06-12 08:00] VITALS: BP 199/91
[2019-06-12] MEDS: GABAPENTIN 100 MG CAPSULE PO SCH ×3 (08:26→17:01)
[2019-06-12] MEDS: HYDROCHLOROTHIAZIDE 25 MG TABLET PO SCH (08:26)
[2019-06-12] MEDS: CLOPIDOGREL BISULFATE 75 MG TABLET PO SCH (08:27)
[2019-06-12] MEDS: AMLODIPINE BESYLATE 5 MG TABLET PO SCH (08:27)
[2019-06-12] MEDS: DULOXETINE HCL 30 MG CAPSULE.DR PO SCH (08:27)
[2019-06-12] MEDS: FENOFIBRATE NANOCRYS (145 MG) 145 MG TABLET PO SCH (08:27)
[2019-06-12] MEDS: METOPROLOL TARTRATE 25 MG TABLET PO SCH ×2 (08:27→17:01)
--- NOTE | 2019-06-12 09:21 | NUR ---
WOUND CARE CONSULT/FOLLOW UP: PT SEEN AGAIN FOR RT SHOULDER CLOSED INCISION WITH SOPHIA AND FOR LOWER BACK RASH. NO SIGN OF INFECTION, ERYTHEMA OR DRAINAGE AT RT SHOULDER INCISION. LOWER BACK RASH IS TISSUE TECHNOLOGIST IN COLOR (PINK) AND NO LONGER RAISED. PT STATES HAS SOME ITCHING. DEFER TO MD FOR RASH. RN TO DISCUSS WITH MD. CONTINUE PRESENT PROTECTION OF RT SHOULDER CLOSED INCISION (DRY DRESSING). DISCUSSED WITH NURSING STAFF. WILL SEE PRN. MD IN AGREEMENT WITH PLAN OF CARE.
[2019-06-12] MEDS: LOSARTAN POTASSIUM 25 MG TABLET PO SCH ×2 (09:59→17:01)
[2019-06-12] MEDS: LOSARTAN POTASSIUM 50 MG TABLET PO SCH (09:59)
[2019-06-12 10:34] VITALS: BP 137/64
[2019-06-12] MEDS: INSULIN REGULAR, HUMAN 100 UNIT/ML 3 ML VIAL SQ PRN ×3 (12:03→22:15)
--- NOTE | 2019-06-12 15:21 | NUR ---
SS GROUP NOTE 06/12/19 Goal: Patient will attend group held today from 2-2:30pm in the activities room and participate and/or actively listen to peers and be respectful. Intervention: SW facilitated group session with patients regarding recognizing positive aspects in their life. SW explored: things, people places they adore; one thing they have worked hard to achieve; one thing thats going well right now; two subjects or pursuits youre passionate about; two people you can count on; three things they look forward to. Response: Patient was agreeable to participating in group session. The pt. shared with the group that she is thankful for her children, grandchildren and great grandchildren. Pt. 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 Pt. was pleasant and very supportive of her peers. Pt. expressed they enjoyed the activity. Plan: Patient will be invited to attend next social scientist group session held and be encouraged to actively participate in group.
[2019-06-12 16:00] VITALS: BP 135/64
[2019-06-12 21:06] VITALS: BP 146/74
[2019-06-12] MEDS: ATORVASTATIN 40 MG TABLET PO SCH (21:28)
[2019-06-12] MEDS: QUETIAPINE FUMARATE 25 MG TABLET PO SCH (21:29)
[2019-06-12] MEDS: INSULIN GLARGINE, 100 UNIT/ML CARTRIDGE SQ SCH (22:13)
[2019-06-13] MEDS: BLOOD SUGAR DIAGNOSTIC 1 EACH STRIP IN SCH ×4 (07:37→22:17)
[2019-06-13 08:00] VITALS: BP 154/67
[2019-06-13] MEDS: METOPROLOL TARTRATE 25 MG TABLET PO SCH ×2 (08:45→16:46)
[2019-06-13] MEDS: LOSARTAN POTASSIUM 25 MG TABLET PO SCH ×2 (08:45→16:45)
[2019-06-13] MEDS: LOSARTAN POTASSIUM 50 MG TABLET PO SCH (08:45)
[2019-06-13] MEDS: AMLODIPINE BESYLATE 5 MG TABLET PO SCH (08:46)
[2019-06-13] MEDS: GABAPENTIN 100 MG CAPSULE PO SCH ×3 (08:46→16:45)
[2019-06-13] MEDS: CLOPIDOGREL BISULFATE 75 MG TABLET PO SCH (08:46)
[2019-06-13] MEDS: FENOFIBRATE NANOCRYS (145 MG) 145 MG TABLET PO SCH (08:46)
[2019-06-13] MEDS: DULOXETINE HCL 30 MG CAPSULE.DR PO SCH (08:46)
[2019-06-13] MEDS: HYDROCHLOROTHIAZIDE 25 MG TABLET PO SCH (08:47)
[2019-06-13] MEDS: INSULIN REGULAR, HUMAN 100 UNIT/ML 3 ML VIAL SQ PRN ×4 (08:53→22:20)
--- NOTE | 2019-06-13 10:07 | NUR ---
PC Hearing Notification: SW called the pts son, Paxton ([phone]), and left him a message regarding the hearing and what it entails.
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
[2019-06-13] MEDS: ACETAMINOPHEN 325 MG TABLET PO PRN (13:34)
[2019-06-13 16:00] VITALS: BP 159/81
[2019-06-13 21:06] VITALS: BP 157/65
[2019-06-13] MEDS: ATORVASTATIN 40 MG TABLET PO SCH (21:14)
[2019-06-13] MEDS: QUETIAPINE FUMARATE 25 MG TABLET PO SCH (21:14)
[2019-06-13] MEDS: INSULIN GLARGINE, 100 UNIT/ML CARTRIDGE SQ SCH (22:19)
[2019-06-14 08:00] VITALS: BP 148/96
[2019-06-14] MEDS: GABAPENTIN 100 MG CAPSULE PO SCH ×3 (08:09→16:20)
[2019-06-14] MEDS: FENOFIBRATE NANOCRYS (145 MG) 145 MG TABLET PO SCH (08:09)
[2019-06-14] MEDS: DULOXETINE HCL 30 MG CAPSULE.DR PO SCH (08:09)
[2019-06-14] MEDS: LOSARTAN POTASSIUM 25 MG TABLET PO SCH ×2 (08:10→16:21)
[2019-06-14] MEDS: HYDROCHLOROTHIAZIDE 25 MG TABLET PO SCH (08:11)
[2019-06-14] MEDS: BLOOD SUGAR DIAGNOSTIC 1 EACH STRIP IN SCH ×4 (08:18→21:55)
[2019-06-14] MEDS: CLOPIDOGREL BISULFATE 75 MG TABLET PO SCH (08:29)
[2019-06-14] MEDS: AMLODIPINE BESYLATE 5 MG TABLET PO SCH (08:29)
[2019-06-14] MEDS: INSULIN REGULAR, HUMAN 100 UNIT/ML 3 ML VIAL SQ PRN ×4 (08:30→22:06)
[2019-06-14] MEDS: METOPROLOL TARTRATE 25 MG TABLET PO SCH ×2 (08:39→16:22)
--- NOTE | 2019-06-14 10:26 | NUR ---
SNF Referral: VERONIKA faxed a referral to [facility] with attn to Vickie to the fax number: [phone].
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
[2019-06-14] MEDS: LORAZEPAM 1 MG TABLET PO PRN (14:53)
[2019-06-14 16:00] VITALS: BP 155/95
[2019-06-14 20:00] VITALS: BP 155/83
[2019-06-14] MEDS: ATORVASTATIN 40 MG TABLET PO SCH (21:55)
[2019-06-14] MEDS: QUETIAPINE FUMARATE 25 MG TABLET PO SCH (21:55)
[2019-06-14 21:57] VITALS: BP 155/83
[2019-06-14] MEDS: INSULIN GLARGINE, 100 UNIT/ML CARTRIDGE SQ SCH (22:03)
[2019-06-15 08:00] VITALS: BP 141/70
[2019-06-15] MEDS: BLOOD SUGAR DIAGNOSTIC 1 EACH STRIP IN SCH ×4 (08:49→22:12)
[2019-06-15] MEDS: HYDROCHLOROTHIAZIDE 25 MG TABLET PO SCH (08:50)
[2019-06-15] MEDS: GABAPENTIN 100 MG CAPSULE PO SCH ×3 (08:50→17:49)
[2019-06-15] MEDS: FENOFIBRATE NANOCRYS (145 MG) 145 MG TABLET PO SCH (08:50)
[2019-06-15] MEDS: DULOXETINE HCL 30 MG CAPSULE.DR PO SCH (08:50)
[2019-06-15] MEDS: CLOPIDOGREL BISULFATE 75 MG TABLET PO SCH (08:50)
[2019-06-15] MEDS: AMLODIPINE BESYLATE 5 MG TABLET PO SCH (08:51)
[2019-06-15] MEDS: LOSARTAN POTASSIUM 25 MG TABLET PO SCH ×2 (08:51→17:49)
[2019-06-15] MEDS: INSULIN REGULAR, HUMAN 100 UNIT/ML 3 ML VIAL SQ PRN ×3 (08:57→22:21)
--- NOTE | 2019-06-15 12:30 | NUR ---
ms rn patient refused blood sugar check at this time, will monitor patient.
[2019-06-15] MEDS: oxyCODONE/APAP (5/325 MG) 1 UDTAB TABLET GT PRN (13:40)
--- NOTE | 2019-06-15 14:00 | NUR ---
ms rn patient refused to change dressing to right shoulder, says they just changed it today, no need tochange again at this time.
[2019-06-15] MEDS: METOPROLOL TARTRATE 25 MG TABLET PO SCH ×2 (14:10→17:50)
[2019-06-15 16:00] VITALS: BP 140/82
--- NOTE | 2019-06-15 18:00 | NUR ---
ms rn blood sugar - 438 - kyle harman, with order to give standing coverage, at this time and recheck again tonight, was aware that pt just ate a regular ice cream. no s/s of hypoglycemia noted.
--- NOTE | 2019-06-15 18:10 | NUR ---
ms rn regular insulin 10 units given sq. all needs attended.
--- NOTE | 2019-06-15 18:20 | NUR ---
MS RN RECHECKED BS - 491, PAGED LIVESTOCK RANCHER FOR [employer],FARZANEH ARTEAGA FOR ORDER, TALKED W/ JAY,AWAITING FOR HIM TO CALL BACK.
--- NOTE | 2019-06-15 19:31 | NUR ---
ms bjorn gonzalez did not call back, endorsed to publications editor for follow up, patient on bed, asymptomatic.
--- NOTE | 2019-06-15 19:36 | NUR ---
ms bjorn gonzalez called, does not want to give any at this time, want to check at 2200 due to insulin peak time is not yet reach. endorsed to night warehouse manager.
[2019-06-15 20:51] VITALS: BP 151/66
[2019-06-15] MEDS: QUETIAPINE FUMARATE 25 MG TABLET PO SCH (21:47)
[2019-06-15] MEDS: ATORVASTATIN 40 MG TABLET PO SCH (21:47)
[2019-06-15] MEDS: INSULIN GLARGINE, 100 UNIT/ML CARTRIDGE SQ SCH (22:16)
[2019-06-16] MEDS: BLOOD SUGAR DIAGNOSTIC 1 EACH STRIP IN SCH ×4 (07:23→21:53)
[2019-06-16 08:00] VITALS: BP 148/72
--- NOTE | 2019-06-16 08:00 | NUR ---
RN NOTE- PT REFUSED 2U SSI FOR BS 147. ADVISED ABOUT MEDICATIONS AND CONSEQUENCES. WILL MONITOR.
[2019-06-16] MEDS: CLOPIDOGREL BISULFATE 75 MG TABLET PO SCH (08:36)
[2019-06-16] MEDS: AMLODIPINE BESYLATE 5 MG TABLET PO SCH (08:36)
[2019-06-16] MEDS: HYDROCHLOROTHIAZIDE 25 MG TABLET PO SCH (08:38)
[2019-06-16] MEDS: LOSARTAN POTASSIUM 25 MG TABLET PO SCH ×2 (08:39→17:00)
[2019-06-16] MEDS: FENOFIBRATE NANOCRYS (145 MG) 145 MG TABLET PO SCH (08:39)
[2019-06-16] MEDS: DULOXETINE HCL 30 MG CAPSULE.DR PO SCH (08:39)
[2019-06-16] MEDS: GABAPENTIN 100 MG CAPSULE PO SCH ×3 (08:39→17:41)
[2019-06-16] MEDS: METOPROLOL TARTRATE 25 MG TABLET PO SCH ×2 (08:40→17:00)
[2019-06-16] MEDS: INSULIN REGULAR, HUMAN 100 UNIT/ML 3 ML VIAL SQ PRN ×3 (12:16→21:58)
--- NOTE | 2019-06-16 12:23 | NUR ---
RN NOTE- PT W BS 267 W 6 U SSI COVERAGE. DISCUSSED MEDICATIONS W PT. PT RECEIVED SSI COVERAGE AND WAS MED COMPLIANT.
[2019-06-16 16:00] VITALS: BP 118/51
[2019-06-16 20:24] VITALS: BP 149/73
[2019-06-16] MEDS: oxyCODONE/APAP (5/325 MG) 1 UDTAB TABLET GT PRN (20:41)
--- NOTE | 2019-06-16 20:50 | NUR ---
GPS RN NOTES: UPON DOING ROUNDS PT STANDING NEAR HER BED CRYING. WHEN ASKED HOW SHE IS FEELING, PT STATED, "I HAVE PAIN ON MY SHOULDERS." ASKED PT TO RATE PAIN 0-10 PT STATED, " 8 TO 9". CHECKED PT VITALS WNL. OFFERED PERCOCET MEDICATION FOR PAIN ORDERED. PT AGREED AND TOLERATED WELL. CONTINUE TO MONITOR.
[2019-06-16] MEDS: QUETIAPINE FUMARATE 25 MG TABLET PO SCH (21:14)
[2019-06-16] MEDS: ATORVASTATIN 40 MG TABLET PO SCH (21:14)
[2019-06-16] MEDS: INSULIN GLARGINE, 100 UNIT/ML CARTRIDGE SQ SCH (21:59)
[2019-06-17] MEDS: BLOOD SUGAR DIAGNOSTIC 1 EACH STRIP IN SCH ×2 (07:33→12:11)
[2019-06-17] MEDS: INSULIN REGULAR, HUMAN 100 UNIT/ML 3 ML VIAL SQ PRN ×3 (07:35→17:09)
[2019-06-17 08:00] VITALS: BP 155/70
[2019-06-17] MEDS: HYDROCHLOROTHIAZIDE 25 MG TABLET PO SCH (08:37)
[2019-06-17] MEDS: LOSARTAN POTASSIUM 25 MG TABLET PO SCH ×2 (08:38→17:04)
[2019-06-17] MEDS: FENOFIBRATE NANOCRYS (145 MG) 145 MG TABLET PO SCH (08:38)
[2019-06-17] MEDS: GABAPENTIN 100 MG CAPSULE PO SCH ×3 (08:38→17:04)
[2019-06-17] MEDS: DULOXETINE HCL 30 MG CAPSULE.DR PO SCH (08:38)
[2019-06-17] MEDS: AMLODIPINE BESYLATE 5 MG TABLET PO SCH (08:38)
[2019-06-17] MEDS: CLOPIDOGREL BISULFATE 75 MG TABLET PO SCH (08:38)
[2019-06-17] MEDS: METOPROLOL TARTRATE 25 MG TABLET PO SCH ×2 (09:08→17:04)
[2019-06-17] MEDS ORDERED: DEXTROSE 50%-WATER 50 ML DISP.SYRIN IV PRN (13:30)
[2019-06-17 16:00] VITALS: BP 130/57
[2019-06-17] MEDS: BLOOD SUGAR DIAGNOSTIC 1 EACH STRIP VI SCH ×2 (17:00→22:15)
[2019-06-17] MEDS: ACETAMINOPHEN 325 MG TABLET PO PRN (19:57)
--- NOTE | 2019-06-17 20:03 | NUR ---
GPS RN NOTES : PT C/O OF HEADACHE 3 OUT OF 10 PAIN. OFFERED TYLENOL 650MG PO PRN ORDERED. PT TOLERATED WELL. CONTINUE TO MONITOR.
[2019-06-17 20:40] VITALS: BP 132/56
[2019-06-17] MEDS: ATORVASTATIN 40 MG TABLET PO SCH (21:13)
[2019-06-17] MEDS: QUETIAPINE FUMARATE 25 MG TABLET PO SCH (21:14)
[2019-06-17] MEDS: *INSULIN REGULAR(HUMULIN R)HUM 100 UNIT/ML VIAL SQ PRN (22:19)
[2019-06-17] MEDS: INSULIN GLARGINE, 100 UNIT/ML CARTRIDGE SQ SCH (22:20)
--- NOTE | 2019-06-18 06:25 | NUR ---
GPS RN NOTES: PT REFUSED BLOOD DRAWN. EXPLAINED THE RISKS AND BENEFITS X3 STILL REFUSED. LABORATORY WILL COME BACK LATER TO TRY AGAIN TODAY. WILL ENDORSE TO MORNING SHIFT TO F/U. CONTINUE TO MONITOR.
[2019-06-18] MEDS: BLOOD SUGAR DIAGNOSTIC 1 EACH STRIP VI SCH ×4 (07:40→22:27)
[2019-06-18] MEDS: INSULIN REGULAR, HUMAN 100 UNIT/ML 3 ML VIAL SQ PRN ×2 (07:43→22:42)
[2019-06-18] MEDS: CLOPIDOGREL BISULFATE 75 MG TABLET PO SCH (08:03)
[2019-06-18] MEDS: DULOXETINE HCL 30 MG CAPSULE.DR PO SCH (08:03)
[2019-06-18] MEDS: FENOFIBRATE NANOCRYS (145 MG) 145 MG TABLET PO SCH (08:03)
[2019-06-18] MEDS: AMLODIPINE BESYLATE 5 MG TABLET PO SCH (08:04)
[2019-06-18] MEDS: LOSARTAN POTASSIUM 25 MG TABLET PO SCH ×2 (08:04→16:54)
[2019-06-18] MEDS: GABAPENTIN 100 MG CAPSULE PO SCH ×3 (08:04→16:54)
[2019-06-18] MEDS: METOPROLOL TARTRATE 25 MG TABLET PO SCH ×2 (08:05→16:53)
[2019-06-18] MEDS: HYDROCHLOROTHIAZIDE 25 MG TABLET PO SCH (08:12)
[2019-06-18] MEDS: oxyCODONE/APAP (5/325 MG) 1 UDTAB TABLET GT PRN (09:48)
--- NOTE | 2019-06-18 09:49 | NUR ---
RN NOTE- PT W PAIN TO RT SHOULDER. 7-10. PERCOCET PRN GIVEN
[2019-06-18 09:57] VITALS: BP 131/56
[2019-06-18] MEDS: *INSULIN REGULAR(HUMULIN R)HUM 100 UNIT/ML VIAL SQ PRN ×2 (12:10→16:52)
[2019-06-18 16:00] VITALS: BP 145/72
--- NOTE | 2019-06-18 18:22 | NUR ---
RN NOTE- DRESSING REMOVED AND SITE EXAMINED. SOPHIA INTACT, NO ERYTHEMA, NO EDEMA, NO EXUDATE. COVERED W DRESSING . TAPED SECURELY. PT WAS EATING DINNER AND HAD SMALL EPISODE OF EMESIS. SHE TOLD THIS RN THAT SHE GETS SICK WHEN SHE EATS RICE. I ASKED HER WHY SHE ATE IT IN THE FIRST PLACE KNOWING THAT. SHE ANSWERED, "IT DIDN'T LOOK LIKE RICE." CLEANED PT AND WILL MONITOR
--- NOTE | 2019-06-18 18:54 | NUR ---
RN NOTE- PT STOPPED VOMITING. STATED SHE FELT 'ITCHY' UNDER BREASTS. ON EXAM, NOTED ERYTHEMA LIKE AREAS BENEATH BOTH BREASTS. PHOTOS TAKEN FOR CHART. WOUND CARE ORDERED. NOTIFY NEXT SHIFT FOR F/U
[2019-06-18 20:22] VITALS: BP 128/67
[2019-06-18] MEDS: QUETIAPINE FUMARATE 25 MG TABLET PO SCH (21:55)
[2019-06-18] MEDS: ATORVASTATIN 40 MG TABLET PO SCH (21:56)
[2019-06-18] MEDS ORDERED: INSULIN GLARGINE, 100 UNIT/ML CARTRIDGE SQ ONE (23:08)
[2019-06-18] MEDS: INSULIN GLARGINE, 100 UNIT/ML CARTRIDGE SQ SCH (23:17)
[2019-06-19] MEDS: BLOOD SUGAR DIAGNOSTIC 1 EACH STRIP VI SCH ×4 (07:41→21:33)
[2019-06-19] MEDS: INSULIN REGULAR, HUMAN 100 UNIT/ML 3 ML VIAL SQ PRN ×3 (07:51→17:36)
[2019-06-19 08:00] VITALS: BP 147/78
[2019-06-19] MEDS: LOSARTAN POTASSIUM 25 MG TABLET PO SCH ×2 (09:07→17:20)
[2019-06-19] MEDS: GABAPENTIN 100 MG CAPSULE PO SCH ×3 (09:08→17:20)
[2019-06-19] MEDS: DULOXETINE HCL 30 MG CAPSULE.DR PO SCH (09:08)
[2019-06-19] MEDS: FENOFIBRATE NANOCRYS (145 MG) 145 MG TABLET PO SCH (09:08)
[2019-06-19] MEDS: CLOPIDOGREL BISULFATE 75 MG TABLET PO SCH (09:08)
[2019-06-19] MEDS: METOPROLOL TARTRATE 25 MG TABLET PO SCH ×2 (09:09→17:21)
[2019-06-19] MEDS: HYDROCHLOROTHIAZIDE 25 MG TABLET PO SCH (09:10)
[2019-06-19] MEDS: AMLODIPINE BESYLATE 5 MG TABLET PO SCH (09:55)
--- NOTE | 2019-06-19 10:20 | NUR ---
Family Contact: Pts , Mustapha ([phone]), called the SW and stated that the pt called him and she stated that she will be discharged home the next day. SW stated that the MD is releasing her tomorrow but that the SW has to talk to the pt regarding her discharge to either a SNF or her home.
--- NOTE | 2019-06-19 11:05 | NUR ---
Individual Intervention: SW met with the pt and informed her that the pt may be discharged to the [facility] that came to assess her earlier or the pt can be discharged back to her home with her . Pt stated that she wanted to return to her home with her children. SW stated that she will arrange her discharge back to her home.
--- NOTE | 2019-06-19 13:55 | NUR ---
Family Contact: VERONIKA called the pts , Mustapha ([phone]), and informed him that the pt is going to be discharged home the following day. He stated that he will come and pick her up around 12pm.
--- NOTE | 2019-06-19 15:45 | NUR ---
GROUP NOTE: S: "I want to go home instead of a [facility], can you call my to tell him to pick me up." SW informed pt that SW will contact to coordinate her discharge for Wednesday06/20/19. O: Sad affect, did not maintain eye contact and was fidgety with hands. A: Pt gained awareness and verbalized that she needed more help at home and will cooperate with . P: Pt will remain complaint at home with medications and follow up with mental health provider.
[2019-06-19 16:00] VITALS: BP 154/72
--- NOTE | 2019-06-19 19:33 | NUR ---
GPS/RN OPENING NOTES RECEIVED PATIENT AWAKE, ALERT, AMBULATORY AND VERBALIZE NEEDS THAT ROOM WAS TOO WARM, REQUESTED FOR COOLER TEMP. ASSISTED BY SCOW CAPTAIN AND PATIENT ABLE TO REST. NO GRIMACE OR GUARDING. BED LOCKED, CALL LIGHTS WITHIN REACH, WILL MONITOR.RECEIVED ENDORSEMENT FROM AM RN FOR BARBARA.
[2019-06-19 19:46] VITALS: BP 139/61
[2019-06-19 20:36] VITALS: BP 139/61
[2019-06-19] MEDS: QUETIAPINE FUMARATE 25 MG TABLET PO SCH (21:19)
[2019-06-19] MEDS: ATORVASTATIN 40 MG TABLET PO SCH (21:19)
[2019-06-19] MEDS: *INSULIN REGULAR(HUMULIN R)HUM 100 UNIT/ML VIAL SQ PRN (21:39)
[2019-06-19] MEDS ORDERED: INSULIN GLARGINE, 100 UNIT/ML CARTRIDGE SQ SCH (22:00)
[2019-06-20] MEDS: BLOOD SUGAR DIAGNOSTIC 1 EACH STRIP VI SCH (07:20)
[2019-06-20] MEDS: INSULIN REGULAR, HUMAN 100 UNIT/ML 3 ML VIAL SQ PRN (07:23)
[2019-06-20 08:00] VITALS: BP 108/61
[2019-06-20] MEDS: LOSARTAN POTASSIUM 25 MG TABLET PO SCH (08:22)
[2019-06-20] MEDS: HYDROCHLOROTHIAZIDE 25 MG TABLET PO SCH (08:22)
[2019-06-20 08:23] VITALS: BP 108/61
[2019-06-20] MEDS: AMLODIPINE BESYLATE 5 MG TABLET PO SCH (08:23)
[2019-06-20] MEDS: METOPROLOL TARTRATE 25 MG TABLET PO SCH (08:23)
[2019-06-20] MEDS: GABAPENTIN 100 MG CAPSULE PO SCH (08:25)
[2019-06-20] MEDS: FENOFIBRATE NANOCRYS (145 MG) 145 MG TABLET PO SCH (08:25)
[2019-06-20] MEDS: DULOXETINE HCL 30 MG CAPSULE.DR PO SCH (08:25)
[2019-06-20] MEDS: CLOPIDOGREL BISULFATE 75 MG TABLET PO SCH (08:25)
--- NOTE | 2019-06-20 08:58 | NUR ---
Family Contact: SW called the pts , Mustapha ([phone]), and he stated that he will be arriving around noon time to pharmacy picking technician the pt and take the pt home today as was requested by the pt.
--- NOTE | 2019-06-20 11:55 | NUR ---
GREIGE GOODS MARKER NOTE: 79 YEAR OLD FEMAL DISCHARGED TO HOME IN STABLE CONDITION. COMPLIANT WITH MEDICATIONS, COOPERATIVE WITH TREATMENT PLANS. PATIENT DENIES SI/I AND INSTRUCTED TO GO TO CLOSEST ER IF DEVELOPING SI/HI. BEHAVIOR IMPROVED, PSYCHIATRIC TREATMENT PLANS MET.MEDICAL TEATMENT PLANS DEFERRED FOR CONTINUAL MONITORING. EDUCATED PT ABOUT AFTER CARE PLAN AND COPY PROVIDED. RETURNED PERSONAL BELONINGS TO PATIENT. MEDICATIONS RECONCILED WITH DR. GONZALES AND [facility]. PT SIGNED DISCHARGE PAPERWORK. WOUND PICTURES TAKEN AND DOCUMENTED IN CHART. PT LEFT THE UNIT AT 1155 VIA WHEEL CHAIR WITH DEANDRE.
--- NOTE | 2019-06-20 13:45 | NUR ---
Home Health Referral: VERONIKA faxed a referral to [facility] ([phone]) to the fax number: .
--- NOTE | 2019-06-20 14:45 | NUR ---
Discharge Note: Pt was discharged home to [id number] [place] [address]; ([phone]). Pt was picked up by her , Mustapha ([phone]), at around 12pm. Upon discharge, the pt appeared to be in a dysphoric mood and presented with a distressed affect. Pt denied both suicidal and homicidal ideation as well as auditory and visual hallucinations. Pt was provided with substance abuse referrals at the time of discharge and was referred to a [facility]. Pt was referred to be under the care of [facility] located at [address], [place] [address]; ; documents were faxed to: . Pt will continue to be in the care of her die inspector, Dr. Rodger Mascorro, located at [id number] [place] [address]; . Substance Abuse Referrals: [facility] [address] [place] [address] Tel. [facility] [address] [place] Provider Mental Health Treatment Tele-dermatology [facility] [address] [place] [address] [facility] [address] [place] [address]
--- NOTE | 2019-06-20 16:20 | NUR ---
Home Health Referral: Claudia Gandhi ([phone]) from [facility] called the SW and confirmed the pts home health order and stated that their next availability is for .
--- NOTE | 2019-07-06 15:18 | NUR ---
Substance Abuse Follow Up: SW called the pt ([phone]) and the pt stated that she refused to talk to the SW and questioned how the SW has her home number. Pt stated that the SW does not need any information and hung up the phone.
== END 2019-06-20 11:55 | disposition home health service (06) | DRG 885 ==
LOC: ER 18:35 → GPS 20:39
PROVIDERS: ADMIT Psychiatry & Neurology Psychiatry; ATTEND Nurse Practitioner Acute Care
DX: F39 Unspecified mood [affective] disorder (principal); N17.0 Acute kidney failure with tubular necrosis; E11.65 Type 2 diabetes mellitus with hyperglycemia; F23 Brief psychotic disorder; I10 Essential (primary) hypertension; F31.9 Bipolar disorder, unspecified; F03.90 Unspecified dementia, unspecified severity, without behavioral disturbance, psychotic disturbance, mood disturbance, and anxiety; D72.829 Elevated white blood cell count, unspecified; Z86.73 Personal history of transient ischemic attack (TIA), and cerebral infarction without residual deficits; E78.5 Hyperlipidemia, unspecified
CPT/HCPCS: 36415; 80048-TC; 80061-TC; 80076-TC; 80305; 81000-TC; 82962-TC; 85025-TC; 87081-TC; 97116-TC; 97530-TC; A6253; G0480; J1815